=== PATIENT | male | born 1975 | race African-American/Black ===

== ENCOUNTER 2017-01-05 19:43 | Emergency (ER) | payer OTHER ==
[~2017-01-05] VITALS: Ht 193 cm; Wt 158.0 kg
[2017-01-05 19:45] VITALS: BP 137/83; PULSE 84; RESP 18; TEMP 97.8; O2SAT 96
[2017-01-05] MEDS ORDERED: AUGM875T PO (21:55)
[2017-01-05] MEDS ORDERED: LORazepam 1 MG TAB PO ONE (22:00)
[2017-01-05] MEDS ORDERED: TETANUS/DIPHTHERIA TOXOID ADULT 0.5 ML VIAL IM ONE (22:00)
[2017-01-05] MEDS ORDERED: AMOXICILLIN/CLAVULANATE K 875 MG TAB PO ONE (22:00)
--- NOTE | 2017-01-05 22:01 | PD ---
HPI Chief Complaint: Skin Problem Time Seen by Provider: 21:55 Travel History International Travel<30 days: No Contact w/Intl Traveler<30days: No Traveled to known affect area: No History of Present Illness HPI 41-year-old black male presents to emergency department for a body fluid exposure. 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 He was in the process of collecting the remains of a body this afternoon when he accidentally cut his left forearm with a bed spring from a mattress. The patient states that he has not had a tetanus shot over 5 years. She does not know what his hepatitis immunization status is. He states that the body was very decomposed. He denies any fever or chills. No numbness or tingling. No pain. PFSH Past Medical History Narrative Medical Hypertension, anxiety, chronic back pain Tetanus Vaccination: > 5 Years Past Surgical History Surgical History: No Previous Surgery Social History Alcohol Use: No Tobacco Use: No Allergies-Medications (Allergen,Severity, Reaction): Coded Allergies: No Known Allergies (Unverified , 01/05/17) Review of Systems Except as stated in HPI: all other systems reviewed are Neg Physical Exam Narrative GENERAL: This is a well-nourished, well-developed patient, in no apparent distress. SKIN: ecchymoses or lesions. Warm and dry. There is a scabbed superficial puncture wound/scratch to the left volar distal forearm. This does not appear to be any deep injury. HEAD: Atraumatic. Normocephalic. EYES: PERRL, EOMI, no discharge or injection. No scleral icterus. EARS: Clear NOSE: Nasal turbinates appear normal. THROAT: Mucosa pink and moist. Airway patent. NECK: Trachea midline. supple, moves head freely. LUNGS: Clear to auscultation. CV: Regular in rhythm. ABDOMEN: Soft nontender. EXT: No clubbing cyanosis or edema. Data Data Last Documented VS Vital Signs Date Time Temp Pulse Resp B/P Pulse Ox O2 Delivery O2 Flow Rate FiO2 01/05/17 19:45 97.8 84 18 137/83 96 Orders Tetanus/Diphtheria Tox Adult (Tetanus/Di (01/05/17 22:00) Amoxicil-Clavulanate (Augmentin) (01/05/17 22:00) Lorazepam (Ativan) (01/05/17 22:00) MDM Medical Decision Making Medical Screen Exam Complete: Yes Emergency Medical Condition: Yes Medical Record Reviewed: Yes Differential Diagnosis MDM: High Differential diagnoses: Body fluid exposure, abrasion, contact dermatitis Narrative Course The patient's injury is cleansed and dressed by the nursing staff. Tetanus status updated. He is given Augmentin 875 by mouth. Ativan 1 mg by mouth. Patient states that his feeling anxious. I've spoken with Dr. Marroquin my attending physician who feels that this is a very low risk exposure. He does not feel that post exposure prophylaxis is indicated. He does not feel that hepatitis immunoglobulin is indicated. He has advised me to recommend follow-up with workman's comp for laboratory testing and hepatitis immunization series. This is body fluid exposure Diagnosis Primary Impression: Patient exposure to body fluids Patient Instructions: General Instructions Additional Instructions: Rest. Elevation. keep clean and dry. Augmentin Daily wound care with soap, water and Neosporin. Follow-up with Workmen's Comp. Saturday. Consider hepatitis immunization. Hepatitis and HIV testing. Return to the ER for any problems. Med/Other Pt SpecificInfo: Prescription(s) given Scripts Amoxicillin-Clavulanate (Augmentin)875-125 mg [id number] Mg PO BID #14 TAB not for use in CrCl <30 ml/min. Prov:Marcel Marroquin MD 01/05/17 Disposition: 01 DISCHARGE HOME Condition: Stable Ryder Bryan Jan 05, 2017 22:01
== END 2017-01-05 22:43 | disposition home or self-care (01) ==
LOC: NEPB 19:43
DX: Z77.21 Contact with and (suspected) exposure to potentially hazardous body fluids (principal); S51.832A Puncture wound without foreign body of left forearm, initial encounter; I10 Essential (primary) hypertension; Z23 Encounter for immunization; Z87.39 Personal history of other diseases of the musculoskeletal system and connective tissue; Z86.59 Personal history of other mental and behavioral disorders; W45.8XXA Other foreign body or object entering through skin, initial encounter; Y99.0 Civilian activity done for income or pay
CPT/HCPCS: 90471; 90714